=== PATIENT | female | born 1970 ===

== ENCOUNTER 2025-01-28 12:15 | Emergency (ER) | payer OTHER ==
[~2025-01-28] VITALS: Ht 162.6 cm; Wt 77.1 kg
[2025-01-28] MEDS ORDERED: FINASTERIDE1 MG PO (12:32)
[2025-01-28] MEDS ORDERED: KETOROLAC TROMETHAMINE 30 MG VIAL IV ONE (12:45)
[2025-01-28 13:38] LABS: BASO % 0.9 % (0.1-1.2); BUN CREA RATIO 16.0 (7.0-25.0); CREATININE SERUM 0.74 mg/dL (0.55-1.02); EOS # 0.09 (0.04-0.54); EOS % 0.7 % (0.7-7.0); GFR 82.41; GLUCOSE FASTING 102.0 mg/dL (65-100); LYMPH # 2.68 (1.18-3.74); LYMPH % 22.0 % (19.3-53.1); MEAN PLATELET VOLUME 9.70 fl (9.4-12.4); MONO # 0.74 (0.24-0.82); MONO % 6.1 % (4.7-12.5); NEUT # 8.53 (1.56-6.13); NEUT % 70.1 % (34.0-71.1); OSMOLALITY SERUM 285.0 MOSM/KG (275-295); RED CELL DISTRIBUTION WIDTH 13.7 % (11.6-14.4)
[2025-01-28 14:05] LABS: URINE APPEARANCE Clear; URINE BILIRRUBIN Negative (NEGATIVE); URINE BLOOD Moderate; URINE COLOR Yellow; URINE GLUCOSE Negative (NEGATIVE); URINE KETONE Negative (NEGATIVE); URINE LEUKOCYTE Small; URINE NITRATE Negative; URINE PROTEIN Negative (NEGATIVE); URINE UROBILINOGEN 0.2 E.U./dl
[2025-01-28 14:48] LABS: URINE BACTERIA 239.9 uL (0.0-1933); URINE EPITHELIAL CELLS 6.4 uL (0.0-38.8); URINE RBC 210.8 uL (0.0-20.8); URINE WBC 203.5 uL (0.0-23.2)
[2025-01-28 14:51] LABS: URINE CAST 0.00 uL (0.0-1.40)
[2025-01-28] MEDS ORDERED: CEFTRIAXONE SODIUM 1,000 MG VIAL IV ONE (15:15)
[2025-01-28] MEDS ORDERED: CEFTRIAXONE SODIUM 1,000 MG VIAL IM ONE (16:00)
== END 2025-01-28 15:50 | disposition home or self-care (01) ==
LOC: ER 12:15
PROVIDERS: Emergency Medicine
DX: N39.0 Urinary tract infection, site not specified (principal); B96.89 Other specified bacterial agents as the cause of diseases classified elsewhere; R31.9 Hematuria, unspecified; Z88.2 Allergy status to sulfonamides; Z88.8 Allergy status to other drugs, medicaments and biological substances